=== PATIENT | female | born 1985 | race Caucasian/White ===

== ENCOUNTER 2017-10-01 10:48 | Emergency (ER) | payer MEDICAID, SELFPAY ==
[2017-10-01 10:49] VITALS: BP 140/107; PULSE 105; RESP 16; TEMP 36.6; O2SAT 96; BMI 18.1
--- NOTE | 2017-10-01 11:08 | ED.DCSUM_ITS ---
- ER Visit Summary Date of Service: 10/01/17 Chief Complaint: Feels dehydrated History of Present Illness: The patient is a 31 F presenting stating that she feels dehydrated. She states she has had a dry mouth for the past 2 days. She denies nausea or vomiting. She states she does have mild diarrhea. She has had difficulties with sleeping. She complains of anxiety. She denies depression or suicidal ideation. She states her mom in March 2016. After that she developed heavy drinking. This was intermittent. She states she stopped drinking over a month ago. She denies other complaints. Physical Examination: Vitals are stable. Patient is afebrile. Alert no acute distress. HEENT exam is unremarkable. Neck is supple. Lungs are clear and equal bilaterally. Heart is regular rate and rhythm. Abdomen is soft nontender nondistended. Extremities are unremarkable. Skin is warm and dry. No focal neurologic deficit. Remainder of exam is unremarkable. Emergency Department Course and Treatment: Patient is given IV fluids. BMP unremarkable other than potassium 3.2. HCG negative. She was given potassium oral replacement. She is feeling improved on reevaluation. She is advised to follow-up with her primary care physician. She is advised return to ED for any worsening complaints. Disposition: Discharge home Impression: Dry mouth, hypokalemia This note was generated with [employer] dictation software. It may contain incorrect words, spelling, and punctuation that were not noted in review of the chart prior to signing ED Disposition - Plan for ED Patient: Chief Complaint: General Illness Instructions: ED Dehydration Referrals: Care Physician,No Primary [Primary Care Provider] -
[2017-10-01] MEDS: 0.9% Normal Saline 1,000 ML 999 ML IV (11:18)
[2017-10-01 11:37] LABS: Anion Gap 11 (5-15); BUN 12 mg/dL (7-18); BUN/Creat Ratio 13.7 RATIO (10-20); Chloride 101 mmol/L (98-107); Creatinine, Serum 0.88 mg/dL (0.55-1.02); EST Glomerular Filtration Rate 80 mL/min (>60); Est Glom Filt Rate - Afr Amer 97 mL/min (>60); Estimated Creatinine Clearance 80.06 ml/min; Glucose 93 mg/dL (74-106); Potassium 3.2 mmol/L (3.5-5.1); Sodium Level 141 mmol/L (136-145)
[2017-10-01 11:43] LABS: Pregnancy, Serum, hCG Quali. NEGATIVE Negative (0-9 Nonpreg)
--- NOTE | 2017-10-01 11:54 | ED.DEP ---
ED Disposition - Plan for ED Patient: Chief Complaint: General Illness Instructions: ED Dehydration Referrals: Care Physician,No Primary [Primary Care Provider] -
[2017-10-01 12:15] VITALS: BP 160/100; PULSE 82; RESP 16; O2SAT 100
== END 2017-10-01 12:15 | disposition home or self-care (01) ==
PROVIDERS: Emergency Provider Emergency Medicine
DX: E87.6 Hypokalemia (principal); R68.2 Dry mouth, unspecified; R19.7 Diarrhea, unspecified
CPT/HCPCS: 80048; 84703; 96360; 99284; J7030